=== PATIENT | male | born 1955 | race Hispanic/Latino ===

== ENCOUNTER → 2017-03-09 | Day surgery (SDC) | payer MEDICARE ==
[~2017-03-09] MED LIST: CLONAZEPAM1 MG PO; ENALAPRIL PO; HYDROCHLOROTHIA25 MG PO; LIPITOR20 MG PO; METFORMIN HCL500 MG PO; METFORMIN PO; MIDAZOLAM HCL 2 MG/2 ML VIAL ONE; MIRTAZAPINE30 MG PO; PROPOFOL IV EMULSION 10 MG/ML 20 ML VIAL ONE; PROPOFOL IV EMULSION 10 MG/ML 50 ML VIAL ONE; VASOTEC10 M1 PO
[2017-03-09 16:30] LABS: BASOPHILS # (AUTO) 0.1 (0.0-0.1); BASOPHILS % 0.6 % (0.0-1.0); EOSINOPHILS # (AUTO) 0.3 (0.0-0.4); EOSINOPHILS % 2.3 % (0.0-6.0); HEMATOCRIT 47.8 % (38.2-49.6); LYMPHOCYTES # (AUTO) 2.8 (1.0-3.2); LYMPHOCYTES % 26.3 % (18.0-39.1); MEAN CORPUSCULAR HEMOGLOBIN 32.3 pg (28-32); MEAN CORPUSCULAR HGB CONC 35.6 g/dL (31-35); MEAN CORPUSCULAR VOLUME 90.9 fL (81-99); MONOCYTES # (AUTO) 0.9 (0.2-0.8); MONOCYTES % 8.2 % (4.4-11.3); NEUTROPHILS # (AUTO) 6.6 (2.1-6.9); NEUTROPHILS % 61.7 % (38.7-80.0); PLATELET COUNT 161 x10e3/uL (140-360); RED BLOOD COUNT 5.26 x10e6/uL (4.3-5.7); RED CELL DISTRIBUTION WIDTH 12.2 % (11.7-14.4)
[2017-03-09 16:46] LABS: ALANINE AMINOTRANSFERASE 78 IU/L (0-55); ALBUMIN 3.9 g/dL (3.5-5.0); ALBUMIN/GLOBULIN RATIO 1.3 (0.8-2.0); ALKALINE PHOSPHATASE 58 IU/L (40-150); ANION GAP 13.1 mmol/L (8-16); BLOOD UREA NITROGEN 11 mg/dL (7-26); BUN/CREATININE RATIO 13 (6-25); CALCIUM 9.2 mg/dL (8.4-10.2); CARBON DIOXIDE 27 mmol/L (22-29); CHLORIDE 102 mmol/L (98-107); CREATININE, SERUM 0.84 mg/dL (0.72-1.25); EST GLOMERULAR FILTRATION RATE > 60 ML/MIN (60-); GLUCOSE 173 mg/dL (74-118); POTASSIUM 4.1 mmol/L (3.5-5.1); SODIUM 138 mmol/L (136-145)
--- NOTE | 2017-05-01 10:59 | Operative Report ---
DATE OF PROCEDURE: March 09, 2017 REFERRING PHYSICIAN: Dr. Reena Rahman. PROCEDURE PERFORMED: 1. Esophagogastroduodenoscopy with biopsies. 2. Colonoscopy with polypectomy. INDICATIONS FOR ESOPHAGOGASTRODUODENOSCOPY: Heartburn indigestion. INDICATIONS FOR COLONOSCOPY: Colorectal cancer screening. History of colon polyps. MEDICATION: Patient was done under MAC. Please see anesthesiologist's note. PROCEDURE: With patient in the left lateral decubitus position, the flexible fiberoptic Olympus gastroscope was introduced into the esophagus under direct visualization without any difficulty. Grade 1 to 2 esophageal varices were noted in the esophagus without active bleeding or stigmata of recent hemorrhage. There was a minute nodule noted at the GE junction, and that was biopsied. The scope was then advanced with ease into the stomach, traversing a small hiatal hernia. Mucosa overlying the antrum and the body revealed some patchy erythema and mild to moderate edema, and biopsies were obtained and sent to stain for H. pylori. Pylorus appeared to be of normal contour and shape, was intubated with ease, and the scope was advanced all the way to the 2nd portion of the duodenum. The scope was then withdrawn slowly. Mucosa overlying the proximal 2nd portion and the duodenal bulb appeared to be within normal limits. The scope was then withdrawn back into the stomach and retroflexed, and the mucosa overlying the fundus and the cardia appeared to be within normal limits. The scope was then straightened out. The stomach was decompressed. The scope was subsequently withdrawn. Patient tolerated the procedure well. IMPRESSION: 1. Distal esophagitis. 2. Grade 1 to 2 esophageal varices without active bleeding or stigmata of recent hemorrhage. 3. Focal nodularity at gastroesophageal junction biopsied. 4. Small hiatal hernia. 5. Gastritis biopsied. Biopsies sent to stain for H. pylori. PLAN: Follow up histology. Initiate Protonix 40 mg 1 p.o. q.a.m. a.c. Check LFTs. Patient was then turned around and after adequate lubrication of the anal canal, a flexible fiberoptic Olympus colonoscope was inserted into the rectum with ease and advanced all the way to the cecum. It was then withdrawn slowly. Mucosa overlying the cecum, ascending colon, transverse colon and descending colon appeared to be within normal limits. There was some diverticular disease noted in the sigmoid colon. Three polyps were hot biopsied from the sigmoid colon. One polyp was hot biopsied from the rectum. The scope was then retroflexed into the distal rectum and small internal hemorrhoids were noted, none of which was actively bleeding. The scope was then straightened out. The rectosigmoid area as well as the distal rectal area were decompressed. The scope was subsequently withdrawn. Patient tolerated the procedure well. IMPRESSION: 1. Diverticulosis. 2. Sigmoid colon polyps times 3 hot biopsied. 3. Rectal polyp times 1 hot biopsied. 4. Internal hemorrhoids, none actively bleeding. PLAN: Follow up histology. Initiate high-fiber low-fat diet. Initiate high-fiber supplement. Patient will need a followup colonoscopy in 3 years. Job#: [id number] EV cc:REENA RAHMAN MD
== END | disposition home or self-care (01) ==
LOC: OR 11:59
PROVIDERS: ATTEND Internal Medicine Gastroenterology
DX: Z12.11 Encounter for screening for malignant neoplasm of colon (principal); K63.5 Polyp of colon; K62.1 Rectal polyp; K29.70 Gastritis, unspecified, without bleeding; I85.00 Esophageal varices without bleeding; K31.89 Other diseases of stomach and duodenum; K57.30 Diverticulosis of large intestine without perforation or abscess without bleeding; K64.8 Other hemorrhoids; K20.9 Esophagitis, unspecified; K44.9 Diaphragmatic hernia without obstruction or gangrene; I10 Essential (primary) hypertension; E11.9 Type 2 diabetes mellitus without complications; Z01.810 Encounter for preprocedural cardiovascular examination; Z68.27 Body mass index [BMI] 27.0-27.9, adult
CPT/HCPCS: 36415; 43239; 45384; 80053; 82948; 85025; 88305; 88312; 93005; J2250

== ENCOUNTER → 2017-07-03 | Outpatient (CLI) | payer MEDICARE ==
[~2017-07-03] MED LIST changes: -MIDAZOLAM HCL 2 MG/2 ML VIAL ONE; -PROPOFOL IV EMULSION 10 MG/ML 20 ML VIAL ONE; -PROPOFOL IV EMULSION 10 MG/ML 50 ML VIAL ONE
--- NOTE | 2017-07-03 15:58 | Diagnostic Imaging Report ---
EXAM: Right Upper Quadrant Ultrasound INDICATION: \[id number] \[id number] \S\ESOPHAGEAL VARICES W/O BLEEDING COMPARISON: None. TECHNIQUE: Transverse and longitudinal images of the right upper abdomen were obtained. FINDINGS: Liver: Size: 17.5 cm in the right midclavicular line, enlarged Appearance: Normal echogenicity, smooth contour Mass: No focal masses. Fat sparing along the gallbladder fossa. Gallbladder: Stones/Sludge: None Wall: 0.2 cm Appearance: No pericholecystic fluid or hydrops. Sonographic Gil's Sign: Negative Bile Ducts: Intrahepatic Ducts: No dilatation Extrahepatic Ducts: Common bile duct measures 0.3 cm, no dilatation Pancreas: Visualized pancreas is unremarkable. Right Kidney: Size: 12.3 cm Echogenicity: Normal Parenchymal thickness: Normal Collecting system: No hydronephrosis Stones: None Cyst/Mass: None Vessels: Aorta: Visualized portions are normal Inferior Vena Cava: Visualized portions are normal Main Portal Vein: 1.1 cm, normal size with hepatopetal flow. Free Fluid: No ascites or pleural effusion IMPRESSION: Enlarged steatotic liver. Signed by: Dr. Robbie Valadez MD on 07/03/2017 3:55 PM
== END ==
LOC: US 14:10
PROVIDERS: ATTEND Internal Medicine Gastroenterology
DX: I85.00 Esophageal varices without bleeding (principal); K76.0 Fatty (change of) liver, not elsewhere classified
CPT/HCPCS: 76705